=== PATIENT | male | born 1970 | race Caucasian/White ===

== ENCOUNTER 2021-04-09 16:42 | Inpatient (IN) | payer OTHER ==
[~2021-04-09] VITALS: Ht 180.3 cm; Wt 105.0 kg
[2021-04-09 17:27] LABS: BASOPHIL 0.5 % (0-2); EOSINOPHIL 4.6 % (0-5); HCT 44.1 % (42.0-52.0); HGB 15.1 g/dl (13.2-18.0); LYMPHOCYTE 18.4 % (15-48); MCH 31.3 pg (25.0-31.0); MCHC 34.2 g/dL (32.0-36.0); MCV 91.5 fL (78.0-100.0); MPV 9.1 fL (6.0-9.5); NEUTROPHIL 65.2 % (41-80); NRBC 0; PLT 333 K/uL (150-400); RBC 4.82 M/uL (4.70-6.00); RDW 12.2 % (11.5-14.0); WBC 7.6 K/uL (4.0-10.5)
[2021-04-09 17:41] LABS: ALBUMIN 3.8 g/dL (3.4-5.0); BILIRUBIN - TOTAL 0.2 mg/dL (0.2-1.0); BUN/CREAT RATIO (CALC) 17.6 RATIO; CREATININE 1.36 mg/dL (0.67-1.17); POTASSIUM 4.3 mmol/L (3.5-5.1); TOTAL PROTEIN 7.8 g/dL (6.4-8.2)
[2021-04-09] MEDS ORDERED: BACTRIM DS TAB1 EACH PO (20:40)
[2021-04-09] MEDS ORDERED: BACTROBAN NASAL1 GM TOP (20:42)
[2021-04-10 06:01] LABS: BASOPHIL 0.5 % (0-2); EOSINOPHIL 6.6 % (0-5); HCT 38.2 % (42.0-52.0); HGB 12.9 g/dl (13.2-18.0); LYMPHOCYTE 22.3 % (15-48); MCH 31.2 pg (25.0-31.0); MCHC 33.8 g/dL (32.0-36.0); MCV 92.3 fL (78.0-100.0); MONOCYTE 11.6 % (0-12); MPV 9.2 fL (6.0-9.5); NEUTROPHIL 58.7 % (41-80); NRBC 0; PLT 290 K/uL (150-400); RBC 4.14 M/uL (4.70-6.00); RDW 12.3 % (11.5-14.0); WBC 6.6 K/uL (4.0-10.5)
[2021-04-10 06:13] LABS: BUN/CREAT RATIO (CALC) 20.8 RATIO; CREATININE 1.06 mg/dL (0.67-1.17); POTASSIUM 4.1 mmol/L (3.5-5.1)
[2021-04-11 05:54] LABS: BASOPHIL 0.6 % (0-2); EOSINOPHIL 7.3 % (0-5); HCT 40.2 % (42.0-52.0); HGB 13.7 g/dl (13.2-18.0); LYMPHOCYTE 26.2 % (15-48); MCH 30.6 pg (25.0-31.0); MCHC 34.1 g/dL (32.0-36.0); MCV 89.7 fL (78.0-100.0); MONOCYTE 12.1 % (0-12); MPV 9.1 fL (6.0-9.5); NEUTROPHIL 53.6 % (41-80); NRBC 0; PLT 297 K/uL (150-400); RBC 4.48 M/uL (4.70-6.00); RDW 12.1 % (11.5-14.0); WBC 5.4 K/uL (4.0-10.5)
[2021-04-11 06:15] LABS: BUN/CREAT RATIO (CALC) 17.2 RATIO; CREATININE 0.99 mg/dL (0.67-1.17); POTASSIUM 4.8 mmol/L (3.5-5.1)
[2021-04-11] MEDS ORDERED: ZYVOX600 MG PO (17:36)
[2021-04-11] MEDS ORDERED: OXYCODONE-ACET1 EAC1 PO (17:36)
[2021-04-11] MEDS ORDERED: LACTOBACILLUS1 EACH PO (17:36)
--- NOTE | 2021-04-11 18:16 | NUR ---
1645 PT WAS ORDERED A MIDLINE CATHETER FOR IV ANTIBIOTICS AT HOME. THE PROCEDURE WAS EXPLAINED TO THE PATIENT ALONG WITH RISKS AND BENEFITS. PT WAS PREPPED AND DRAPED IN STERILE FASHION. THE PT'S LEFT UPPER ARM BASILIC VEIN WAS VISUALIZED USING THE SITE RITE 6 US MACHINE. A 21 GAUGE GUIDE NEEDLE WAS USED. THIS WAS ATTEMPTED 3 TIME WITH SUCCESS ON 3RD TRY, GOOD BLOOD RETURN WAS NOTED. THE GUIDE WIRE THREADED EASILY ON THE 3RD ATTEMPT. THE NEEDLE WAS REMOVED AND THE MIDLINE CATHETER WAS PLACED OVER THE WIRE. THE WIRE AND SHEATH WERE REMOVED. GOOD BLOOD RETURN WAS NOTED. A CONNECTOR WAS FLUSHED AND PLACED OVER THE END OF THE CATHETER. A STAT LOCK WAS PLACED ON THE CATHETER AND A BIOPATCH WAS PLACED ON TOP OF THE INSERTION SITE. A STERILE TEGADERM WAS PLACED OVER THE MIDLINE CATHETER. PT TOLERATED THE PROCEDURE WELL. THIS IS NOT A CENTRAL LINE. REPORT WAS GIVEN TO CECILY COSBY R.N. ON MED/SURG. THE PATIENT'S BED WAS LOWERED TO THE FLOOR LEVEL AND THE CALL LIGHT WAS PLACED WITHIN REACH OF THE PATIENT, THE UPPER 2 SIDERAILS WERE UP.
--- NOTE | 2021-04-11 19:00 | NUR ---
PT STATED THAT HE DIDN'T FEEL WELL V/S TAKEN BP 133/87, PULSE 66, RESP 16, RA,98%, F/S 107. NO C/O CHEST PAIN OR OTHER PAIN. STATED HE FELT CLAMY AND WAS STARTING TO FEEL BETTER. INFORMED HIM THAT THIS NURSE WAS LEAVING AND IF HE STARTED TO FEEL WORSE TO LET ASSEMBLING INSPECTOR NURSE KNOW. WILL INFORM ASSEMBLING INSPECTOR NURSE.
--- NOTE | 2021-04-12 11:46 | NUR ---
TC FROM [place] [facility]. PT. LUIS ANTONIO REQURIES A PREAUTH. TC TO LEIDA MCGRAW AT [phone]. SPOKE WITH [place]. SHE COMPLETED THE PRECERT. PRECERT # IS [id number]. TC TO [place] [facility] [phone] OPTION 3. SHE ADVISED THAT PRESCIPTION WENT THROUGH AND THE COST WOULD BE $43.76. ADVISED JONI DOMINGUEZ OF THE ABOVE INFORMATION.
--- NOTE | 2021-04-12 15:40 | NUR ---
04/12/21 A referral was made to [facility] for a rolling walker. Pt chose to have Outpatient antibiotics after options of HH vs Outpatient were presented.
--- NOTE | 2021-04-13 11:08 | NUR ---
CONNOR YANEZ, INFECTION CONTROL. CAME INTO OFFICE TO ADVISE THAT SHE SAW MR. HUTCHINSON IN THE [place] AND HE BELIEVES HE NEEDS A WHEELCHAIR. [facility]. ADVISED HIM THAT HE RECIEVED A ROLLING WALKER FROM [facility] AND WOULD NOT BE EILIGIBLE FOR A WHEELCHAIR UNLESS HE RENTED ONE OR [employer] BOUGHT ONE. GAVE HIM THE PHONE NUMBER TO [employer] TO TALK WITH THEM ABOUT THE POSSIBLITY OF RENTING A WHEELCHAIR AND ADVISED THAT HE CAN BUY ONE AT ANY [employer] [employer] OR [employer]. PT. ACKNOWLEDGED UNDERSTANDING.
[2021-04-24] MEDS ORDERED: DIFLUCAN200 MG PO (17:33)
[2021-04-30] MEDS ORDERED: PREDNISONE50 M1 PO (10:49)
== END 2021-04-12 15:24 | disposition home or self-care (01) | DRG 603 ==
LOC: FER 16:42 → FMS 19:21
PROVIDERS: Allergy & Immunology Allergy; Nurse Practitioner; Physician Assistant; ADMIT Internal Medicine
PROC: 05HY33Z Insertion of Infusion Device into Upper Vein, Percutaneous Approach (ICD-10-PCS; principal; 2021-04-11)
DX: L03.116 Cellulitis of left lower limb (principal); N17.9 Acute kidney failure, unspecified; T36.8X5A Adverse effect of other systemic antibiotics, initial encounter; Z20.822 Contact with and (suspected) exposure to COVID-19; R23.4 Changes in skin texture; Z90.49 Acquired absence of other specified parts of digestive tract; Z98.890 Other specified postprocedural states; Z87.891 Personal history of nicotine dependence
CPT/HCPCS: 36415; 73610; 73630; 73721; 80048; 80053; 82962; 85025; 87040; 97161; C1751; J1335; J1642; J1650; J2405; J7030; U0002

== ENCOUNTER 2021-04-20 20:11 | Emergency (ER) | payer OTHER ==
[~2021-04-20 20:11] MED LIST: BACTRIM DS TAB1 EACH PO; BACTROBAN NASAL1 GM TOP; LACTOBACILLUS1 EACH PO; OXYCODONE-ACET1 EAC1 PO; ZYVOX600 MG PO
[2021-04-20 21:31] LABS: BASOPHIL 0.5 % (0-2); EOSINOPHIL 3.1 % (0-5); HCT 38.9 % (42.0-52.0); HGB 13.2 g/dl (13.2-18.0); MCH 30.6 pg (25.0-31.0); MCHC 33.9 g/dL (32.0-36.0); MONOCYTE 6.7 % (0-12); MPV 8.7 fL (6.0-9.5); NEUTROPHIL 74.3 % (41-80); NRBC 0; PLT 312 K/uL (150-400); RBC 4.32 M/uL (4.70-6.00); RDW 11.9 % (11.5-14.0); WBC 10.8 K/uL (4.0-10.5)
[2021-04-20 21:41] LABS: ALBUMIN 3.6 g/dL (3.4-5.0); BILIRUBIN - TOTAL 0.2 mg/dL (0.2-1.0); BUN/CREAT RATIO (CALC) 19.8 RATIO; CREATININE 0.96 mg/dL (0.67-1.17); GLOBULIN (CALCULATION) 3.3 g/dL; TOTAL PROTEIN 6.9 g/dL (6.4-8.2)
[2021-04-20] MEDS ORDERED: PERCOCET 5-3251 EACH PO (23:15)
[2021-04-24] MEDS ORDERED: DIFLUCAN200 MG PO (17:33)
[2021-04-30] MEDS ORDERED: PREDNISONE50 M1 PO (10:49)
== END 2021-04-20 23:37 | disposition home or self-care (01) ==
LOC: FER 20:11
PROVIDERS: Physician Assistant
DX: M25.572 Pain in left ankle and joints of left foot (principal); M79.662 Pain in left lower leg; R60.0 Localized edema
CPT/HCPCS: 36415; 80053; 85025; 93971; 96372; 97597; J1170; J1335; J1642